=== PATIENT | female | born 1945 ===

== ENCOUNTER 2022-12-28 06:52 | Inpatient (IN) | payer MEDICARE, OTHER, SELFPAY ==
[2022-12-23 07:57] VITALS: BMI 29.9
[2022-12-28] VITALS (8 sets, daily range): BP systolic 90–117; BP diastolic 39–83; PULSE 65–74; RESP 13–16; TEMP 36–36.8; O2SAT 95–98; BMI 29.9
--- NOTE | 2022-12-28 06:00 | DI.RAD.S_ITS ---
PROCEDURE: XR SHOULDER LT 1V INDICATIONS: postop TECHNIQUE: 1 views of the shoulder were acquired. COMPARISON: None. FINDINGS: Bones: Expected immediate postoperative appearance of the left shoulder, status post shoulder arthroplasty. No evidence of hardware failure or loosening. No fractures or dislocations. No suspicious bony lesions. Visualized ribs appear intact. Soft tissues: No suspicious soft tissue calcifications. IMPRESSION: Expected immediate postoperative appearance, status post shoulder arthroplasty. Dictated by: Abel Vergara M.D. on 12/28/2022 at 13:07 Approved by: Abel Vergara M.D. on 12/28/2022 at 13:08
[2022-12-28] MEDS: LACTATED RINGERS 1,000 ML 42 ML IV ×2 (07:44→10:16)
[2022-12-28] MEDS: ACETAMINOPHEN 325 MG TABLET 975 MG PO (07:46)
--- NOTE | 2022-12-28 08:30 | PM.PREOP ---
Pre-operative Note Interval Note History & Physical reviewed/Exam performed by Physician: Yes Changes to H&P: No
--- NOTE | 2022-12-28 08:49 | SUR.PREOP ---
Block start time [0840] . Monitoring initiated and maintained throughout procedure. Oxygen and medications given per anesthesiologist instructions. Patient remained stable throughout procedure, no adverse reactions noted. Block end time [0849].
[2022-12-28] MEDS: CEFAZOLIN 2 GM/100 ML PREMIX 100 ML IV (09:05)
--- NOTE | 2022-12-28 09:34 | SUR.OPER ---
Beach chair with Fatmata/Mik shoulder positioner. Lower body on padded OR bed. Head in foam padded head cradle, secured with straps. Non-operative arm secured <90 degrees abduction. Pillow under knees. Safety belt at thigh. Cloth tape over blanket over lower legs.
[2022-12-28] MEDS: TRANEXAMIC ACID 1,000 MG VIAL 1000 MG INJ (09:38)
[2022-12-28] MEDS: BUPIVACAINE 0.25% (PF) 60 ML, EPINEPHrine 0.3 MG INJ (09:39)
--- NOTE | 2022-12-28 10:19 | P.PCN_ITS ---
Peripheral Nerve Block Note Pre-Procedure Reason for block: Attending surgeon request/order for post-op pain management (L Interscalene Block) Pre-procedure checklist: Patient examined and chart reviewed, Risks, benefits, alternatives of block discussed, questions answered, Verification of anti-coagul ation status, Site confirmed, Timeout performed and Standard ASA monitors applied Consent obtained from: Patient Procedure Date of procedure: 12/28/22 Start Time: 08:40 End Time: 08:49 Performed by: Justus Flores Sedation - enter dose in comment field: IV Midazolam (mg) (2) and IV Fentanyl (mcg) (50) Location: Pre-Op Position: Supine Laterality: Left Sterile Technique: Chloraprep Skin Wheal: Lidocaine 1% (1ml) Gauge: 27 Equipment Single injection - Needle brand, gauge, length: 22g Medications Medications - enter concentration (%) & mL in comment field: Bupivacaine (0.5% 20ml) Test Dose: Negative Incremental aspiration prior to injection: Yes Ultrasound Reason for Ultrasound: U/S guidance used for needle placement and U/S used to visualize spread of anesthetic Image printed/saved/archived: Yes Vital signs VS: - 12/28/22 07:32 Temperature 98.3 F Pulse Rate 74 Respiratory Rate 16 Blood Pressure 117/83 Pulse Oximetry 97 Oxygen Delivery Method Room Air Oxygen Delivery Method Room Air
--- NOTE | 2022-12-28 11:45 | P.OP_ITS ---
Operative Date/Time/Diagnoses Date of procedure: 12/28/22 Time of procedure: 11:46 Pre-op diagnosis: Left cuff tear arthropathy Post-op diagnosis: same Procedure & Clinicians Procedure: Left reverse total shoulder arthroplasty Same procedure as scheduled: Yes Indications: Indications: This is a 77-year-old female who has rotator cuff arthropathy. Symptoms have been present for years, insidious onset. Patient has failed conservative therapy. After extensive discussion in clinic, they wished to go forward with surgery. Risks and benefits were described including the risk of infection, bleeding, damage to internal structures including nerves. We also discussed the risk of failure of surgery and the need for revision surgery as well as the risk of anesthesia. The patient expressed understanding with these risks and wished to go forward with surgery. Surgeon: Chidi Hayden Early Childhood Assistant: Laquita Townsend Click Yes if Unassisted: No Anesthesia Type: General Operative Notes Findings: Findings: Osteoarthritis of the glenoid and humeral head as well as deficient rotator cuff and some cystic changes around the anchors as noted on preoperative imaging and under direct visualization Closure Type: primary Specimen(s): none sent Prosthetic devices, grafts, tissues, transplants, or devices: Tornier implants Base plate: 29 mm, full wedge (15?) Glenosphere: Standard 36 mm Stem: Perform 3 Poly: 0 concentric Estimated Blood Loss (mL): 50 Procedure in detail: Patient was seen in the preoperative holding unit. The correct left shoulder was identified and marked with my initials. Again we discussed the risks and benefits of surgery and they wished to go forward with surgery. The patient was brought back to the operating room and placed supine on the operating table. Smooth endotracheal intubation was performed by anesthesia. All prominences were padded and they were placed into the beach chair position. Intravenous antibiotics were given. The left shoulder was then prepped with the standard sterile preparation and draping. A time-out was then performed in my initials were again identified on the correct shoulder. 1 g of IV tranexamic acid was given. A standard deltopectoral incision was made. Skin flaps were made. The cephalic vein was identified and retracted laterally. This was protected throughout the remainder of the case. Sharp dissection was made along the deltoid, subacromial and subcoracoid space to release adhesions. The conjoined tendon was identified and the axillary nerve was palpated and continuous using the tug test. It was protected throughout the remainder of the case. A brown retractor was placed underneath the deltoid muscle and a darach retractor underneath the conjoint tendon. The anterior circumflex artery and associated veins on the lower border of the subscapularis were identified and tied off using 0-Vicryl. The biceps tendon was identified in the bicipital groove. This was released from its sheath, and taken from its origin on the glenoid and tied into the pectoralis tendon for a solid tenodesis. We then began a subscapularis peel. The subscapularis was tagged with an Ethibond suture. A 360 degree circumferential release of the subscapularis was performed with protection of the axillary nerve. The coracohumeral ligament was released at the base of the coracoid. The coracoacromial ligament was left intact. The shoulder was then dislocated. Osteophytes were removed using combination of rongeur and osteotome. The rotator cuff was noted to be insufficient. An intramedullary guide was used set at version of 20?. Using an oscillating saw a conservative humeral head cut was made. Impaction reamers were reamed up to a size 3 stem with a built-in angle 135?. A neck protector was placed. Attention was then turned to the glenoid. After retracting the humeral head posteriorly a circumferential release was performed of the capsule with protection of the axillary nerve. The labrum was then released starting at the biceps anchor and going around the rim a small amount of triceps was released from the inferior glenoid. A center guide pin was then placed using the guide, followed by Reamer. After adequate cartilage was removed the center drill hole was drilled and measured. The base plate was then implanted and screwed into place. The superior drill hole was drilled and filled in a nonlocking fashion, followed by the inferior and anterior holes in locking fashion, the posterior hole was also filled. A 36 standard glenosphere was then selected and screwed into place onto the base plate. Turning back to the humerus, the humeral head was delivered and trialed with a 0 concentric. The arm was taken through range of motion and this was felt to be stable. The trial was then removed and a dilute Betadine wash was then performed with 1 L of sterile saline. Before placing the final implant, drill holes were made in the bicipital groove for the subscapularis repair, and sutur es were passed through the drill holes. The final stem was then impacted into the humerus. The shoulder was then reduced and again brought through range of motion and was felt to be stable. The subscapularis was then repaired using a modified racking hitch with nice loupes. The deltopectoral interval was then closed with #2 Ethibond. The skin was closed with 2-0 PDS and Monocryl followed by Aquacel dressing. Patient was awoken from anesthesia and brought back to the postoperative recovery unit without issue. They were placed into a sling. Assisting participation: This operation could not have been safely performed (without compromising the technical results or length of the procedure) without the assistance of a skilled surgical physician assistant. The surgical physician assistant was medically necessary for proper positioning, retraction and manipulation of instruments, proper exposure, graft prep, and manipulation of tissue. Complications: none Post-operative Condition: stable Disposition: PACU Plan for aftercare: Postoperative instructions: Sling to remain on for 6 weeks. No external rotation past neutral for 6 weeks. Okay for him to come off her shower. Okay to shower over the Aquacel dressing. If any water gets underneath the dressing, remove the dressing. First postoperative visit in 2 weeks.
--- NOTE | 2022-12-28 12:42 | SUR.PHASEII ---
Pt c/o right eye being scratchy. Pt states it was that was preop. Wet washcloth given.
--- NOTE | 2022-12-28 13:08 | SUR.PHASEII ---
Dr Stapleton called and notified of patient complaining her right eye feels like I have an eyelash and it is blurry. Eye rinsed with NS and the scratchiness feels a bit better but it's still blurry MD to come and see patient.
--- NOTE | 2022-12-28 13:21 | SUR.PHASEII ---
Dr Flores to bedside to evaluation patient eye irritation . See new orders and discharge note.
[2022-12-28] MEDS: KETOROLAC 0.5% OPHTH DROPS 5 ML 2 DROPS EYE-BOTH (13:52)
[2022-12-28] MEDS: ERYTHROMYCIN OPHTH 1 GM OINT 1 APPLIC EYE-RIGHT (13:53)
--- NOTE | 2022-12-28 14:01 | SUR.PHASEII ---
Pt states Ketorolac drops helped with pain. Oint applied. gauze placed over eye to keep closed and paper tape used. Bear cordeller applied as pt states she feels cold and requested to rest.
== END 2022-12-28 14:43 | disposition home or self-care (01) | DRG 483 ==
PROVIDERS: Admitting Provider Orthopaedic Surgery; PCP Physician Assistant; Referring Provider Orthopaedic Surgery; Visit Provider Orthopaedic Surgery
PROC: 0RRK00Z Replacement of Left Shoulder Joint with Reverse Ball and Socket Synthetic Substitute, Open Approach (ICD-10-PCS; CPT 23472; principal; 2022-12-28 08:45)
DX: M75.102 Unspecified rotator cuff tear or rupture of left shoulder, not specified as traumatic (principal); M19.012 Primary osteoarthritis, left shoulder
CPT/HCPCS: 64450; 73020; C1776; J0171; J0330; J0690; J1100; J2250; J2405; J2704; J3010